=== PATIENT | male | born 1985 ===

== ENCOUNTER 2023-04-24 18:03 | Emergency (ER) | payer SELFPAY ==
[2023-04-24 18:04] VITALS: BP 155/101; PULSE 120; RESP 19; TEMP 36.2; O2SAT 98
--- NOTE | 2023-04-24 20:02 | PC.NURSE ---
pt to selene, states they are leaving and will follow up with pmd local to his home. advised to return if symptoms got worse. verbalized understanding
== END 2023-04-24 21:20 | disposition left against medical advice (07) ==
DX: M79.621 Pain in right upper arm (principal)
CPT/HCPCS: 99199